=== PATIENT | female | born 1965 | race Caucasian/White ===

== ENCOUNTER 2023-11-01 06:25 | Inpatient (IN) | payer MEDICARE, OTHER, SELFPAY ==
--- NOTE | 2023-11-01 03:40 | DOWNTIME ---
There was a [employer] Downtime on 09/26/2023 from 0100 to 09/27/2023 at 0338. Downtime documentation of patient's care, including medication administrations, has been reconciled in the electronic record per guidelines. Refer to the
patient's paper chart under the miscellaneous tab to see printed paper medication records and downtime forms.
--- NOTE | 2023-11-01 03:44 | ED.GENMED ---
History of Present Illness
General
Chief Complaint: Abdominal Pain
Source: patient and spouse
Exam Limitations: none
Time Seen by Provider: 11/01/23 03:37
Nursing documentation reviewed up to this point in time: agreed with
History of Present Illness
History of Present Illness:
58-year-old female with past medical history as documented presents to the emergency department for evaluation of abdominal pain. Patient reports onset of symptoms about a week ago initially they were intermittent but over the past 48 hours have
been constant and more intense. She reports pain primarily in the right upper abdomen radiates towards the right flank. No clear triggering or relieving factors noted. She states she did have some nausea and nonbloody vomiting as well as a
low-grade fever last week shortly after onset but those symptoms have resolved. She denies any diarrhea, does note some constipation over the past few days. She denies any dysuria, hematuria, change in urinary frequency. She says she has never
had similar symptoms in the past. She denies any previous abdominal surgeries.
Past History
Past History
ED Past Medical History: Other (Asthma, anemia, depression, bleeding disorder) and Other (psoriatic arthritis)
Social History
Tobacco: Smoker
Review of Systems
Review of Systems
All Other Systems: ROS reviewed and negative except as documented in HPI and ROS
Constitutional: Reports fever (Initial fever now resolved); Denies chills
Respiratory: Denies cough or trouble breathing
Cardiac: Denies chest pain or palpitations
ABD/GI: Reports abdominal pain, nausea (Initially had nausea and vomiting now resolved) and constipated; Denies diarrhea
: Reports flank pain; Denies dysuria or frequency
Musculoskeletal: Denies neck pain or back pain
Neurological: Denies dizzy or headache
Phy Exam
Physical Exam
Physical Exam:
General: Awake, alert, oriented x3; appears mildly uncomfortable
Head: Normocephalic, atraumatic
Eyes: Conjunctiva normal, sclera anicteric
Throat: Airway intact, handling secretions, moist mucous membranes
Neck: Trachea midline, supple without meningismus
Lungs: Breathing comfortably no distress
Heart: Regular rate
Abd: Soft, mildly distended, tender to palpation right upper quadrant and epigastrium with no rebound or guarding
Back: No CVA tenderness
Neuro: No gross deficits
Skin: no rash
Extremities: No edema in extremities, equal pulses in all extremities
Scores
Heart Failure Risk
Heart Failure Risk Score: Not Applicable
Heart Score for Chest Pain Patients
STEMI patient?: Not applicable
Withdrawal Assessment of Alcohol
Withdrawal Assessment Completed?: Not applicable
Course
Orders/Labs/Results
Orders:
Orders
11/01/23
CT Abd/Pel (IV only)-DH only Urgent
Reason For Exam: ruq pain
11/01/23 02:17
Complete Blood Count/With Diff Routine
Comprehensive Metabolic Panel Routine
Lipase Routine
11/01/23 04:30
UA [Urinalysis] Urgent
Date Specimen was Collected: 11/01/23
Time Specimen was Collected: 04:06
11/01/23 04:37
CefTRIAXone [Rocephin] 1,000 mg IV NOW STA
MetroNIDAZOLE IVPB 500 mg IVPB NOW MetroNIDAZOLE 500 MG/100 ML [Flagyl 500 mg] 100 ml IV NOW
Abnormal Lab Results
11/01/23
02:17
Lipase 348 H U/L
(23-300)
11/01/23 02:17
11/01/23 02:17
MDM/Problems Addressed
Differential Diagnosis Includes:
Cholelithiasis, cholecystitis, appendicitis, pancreatitis, gastritis/PUD, nephrolithiasis
MDM/Problems Addressed:
58-year-old female presents to the emergency room for evaluation of abdominal pain�initially intermittent but constant over the past 48 hours and worsening. Had low-grade fever and some vomiting last week but no associated symptoms this week aside
from mild constipation. Vitals and exam as documented. Plan to place an IV check labs including a CBC and a CMP, lipase. Will check urinalysis. Will send for a CT of the abdomen pelvis. Will provide IV fluids and pain control. Monitor closely
reassess after the above.
Patient still having significant pain after initial dose of morphine�will provide dose of Dilaudid. Initial labs reviewed CBC unremarkable, CMP shows no clinically significant abnormalities; her lipase was marginally elevated at 348. Awaiting
results of CT.
CT reviewed by me appears to show cholelithiasis, awaiting final radiology report. Patient still having significant pain, added Toradol to above regimen.
CT report reviewed: Positive for cholelithiasis with likely impacted stone in the gallbladder neck. No pericholecystic fluid but gallbladder is distended, could be an early acute cholecystitis and given that she is having persistent pain and
tenderness will cover with antibiotics. I think regardless she should have surgical consultation given persistent symptoms, will admit to hospital service for continued management. Case discussed with hospitalist for admission.
Chronic conditions affecting care:
Obesity
*Radiology
Radiology exam reviewed: radiology read reviewed
*Pulse Oximetry
Patient hypoxic: no
*Critical Care Note
Total Time (30-74mins, 75-104mins- exclusive of procedures): Not Applicable
Data Reviewed
Review of Other/Old Records Reveals: Labs and Records
Source: patient and spouse
Patient Management
Discussion with other providers: Hospitalist (Discussed with hospitalist)
Escalation/DeEscalation of care consider admission/obs:
Admission indicated
ED Attending Note
-
Portions of this chart may have been created with voice recognition software.� Occasional wrong word or��sound alike� substitutions may have occurred due to the inherent limitations of voice recognition software.
Discharge Plan
Departure
Patient Disposition: Admit
Date of Disposition: 11/01/23
Time of Disposition: 04:40
Admit to doctor: Mir
Presentation/result/management discussed w/ accepting MD/DO: Hospitalist
Discharge Problem:
Cholelithiasis
Prescriptions:
No Action
ibuprofen 200 MG tablet
400 mg PO DAILYPRN PRN (Reason: PAIN)
albuterol sulfate 1 PUFF HFA aerosol inhaler
2 puff inhalation R Q4HPRN PRN (Reason: SHORTNESS OF BREATH)
ondansetron [Zofran ODT] 8 MG tablet,disintegrating
8 mg PO TIDPRN PRN (Reason: vomiting) Qty: 15 0RF
oxycodone [OxyIR] 5 MG capsule
5 - 10 mg PO Q6HPRN PRN (Reason: pain) Qty: 20 0RF
pantoprazole [Protonix] 40 MG tablet,delayed release (DR/EC)
40 mg PO BID Qty: 30 0RF
Referrals:
Jonh Garcia MD [Family Provider] -
Interventions
Interventions:
BW-Qegroj-Enuziokhtn Assessment Last Done: 11/01/23 03:57
Discharge Date and Time
Print Language: BANGLADESHI
[2023-11-01 03:47] LABS: ALT (SGPT) 19 U/L (0-35); AST (SGOT) 23 U/L (14-36); Albumin 3.9 g/dl (3.5-5.0); Alkaline Phosphatase 109 U/L (38-126); Blood Urea Nitrogen 15 mg/dl (7-17); Calcium 9.7 mg/dl (8.4-10.2); Carbon Dioxide 26 mmol/L (22-30); Chloride 103 mmol/L (98-107); Glucose 94 mg/dl (70-99); Lipase 348 U/L (23-300); Potassium 4.2 mmol/L (3.5-5.1); Sodium 138 mmol/L (135-145); Total Bilirubin 0.4 mg/dl (0.2-1.3); eGFR > 60.00
[2023-11-01 03:56] LABS: % Basophils 0.6 % (0-2); % Eosinophils 2.5 % (0-6); % Immature Granulocytes 0.1 % (0-0.5); % Monocytes 6.1 % (1.7-9.3); % Neutrophils 64.7 % (42.2-75.2); Absolute Basophils 0.1 10^3/uL (0-0.2); Absolute Eosinophils 0.2 10^3/uL (0-0.7); Absolute Lymphocytes 2.2 10^3/uL (1.2-3.4); Absolute Monocytes 0.5 10^3/uL (0.1-0.6); Absolute Neutrophils 5.4 10^3/uL (1.4-6.5); Hematocrit 40.5 % (37.0-47.0); Hemoglobin 13.6 g/dL (12.0-16.0); Mean Corp Hgb Conc. 33.6 g/dL (33.0-37.0); Mean Corpuscular Hgb 28.3 pg (27.0-31.0); Mean Corpuscular Volume 84.4 fL (81.0-99.0); Mean Platelet Volume 8.9 fL (7.4-10.4); Nucleated Red Blood Cells % 0 %; Platelet Count 400 10^3/uL (130-400); Red Cell Dist. Width 13.1 % (11.5-14.5); White Blood Cell Count 8.4 10^3/uL (4.8-10.8)
[2023-11-01 04:43] LABS: Urine Albumin Negative (Neg - Trace); Urine Bilirubin Negative (Negative); Urine Character Clear (Clear); Urine Color Straw; Urine Glucose Negative (Negative); Urine Ketone Negative (Negative); Urine Leukocyte Trace (Negative); Urine Nitrite Negative (Negative); Urine Occult Blood Negative (Negative); Urine Specific Gravity 1.005 (<1.030); Urine Urobilinogen Negative (Neg - 1+)
[2023-11-01 04:59] LABS: Urine Bacteria Moderate (Negative); Urine Squamous Cell >30 /LPF (Few)
[2023-11-01] MEDS: ROCEPHIN 1000 MG IV (05:00)
[2023-11-01] MEDS: FLAGYL 500 MG 100 IV (05:00)
--- NOTE | 2023-11-01 05:53 | HPS.HSE ---
Family Physician
-
Family Physician: Jonh Garcia
Chief Complaint
-
Abd Pain, N/V
History of Present Illness
Patient is a 58y F with PMH significant for psoriatic arthritis who presents to ED complaining of abdominal pain and N/V. Patient reports RUQ abdominal pain and R flank pain that started about one week ago. Her symptoms improved briefly in the
interim - before recurring again on Monday evening. She has had multiple episodes of non-bloody, bilious emesis. Pos chills with no documented fever. No diarrhea. No urinary complaints.
Patient denies any prior history of similar symptoms. She states that symptoms do not seem to be triggered by or worsened by eating / drinking.
She presented to the ED this evening for further evaluation and CT scan shows gallbladder stones including probable GB neck stone and possible cholecystitis.
Medical History
Past Medical History
Past Medical History: Reports Other
Additional Past Medical History:
Psoriatic Arthritis
Past Surgical History: Reports Other
Additional Past Surgical History:
Left Rotator Cuff Surgery (August 2023)
Cervical Laminectomy / Foraminotomy
Lumbar Laminectomy / Fusion
Carpal Tunnel
Social History
Tobacco: Smoker (Current every day smoker. /3 ppd for total of 10-15 pack years.)
Alcohol: Occasional
Drug: None
Personal:
Living: With Family
Family History
Family History: Not pertinent
Allergies / Home Medications
Allergies reflects when Allergies were last updated in [employer] [facility] [employer].
Home Medications with original date entered in [employer] [facility] [employer]
Allergy/Medication List:
Allergies
Allergy/AdvReac Type Severity Reaction Status Date / Time
adhesive Allergy Rash Verified 10/28/21 19:11
Home Medications
celecoxib 200 mg capsule (Celebrex) 200 mg PO BID 11/01/23
folic acid 1 mg tablet 1 mg PO DAILY 11/01/23
ixekizumab 80 mg/mL subcutaneous auto-injector (Taltz Autoinjector) 80 mg SC Q4W 11/01/23
methotrexate sodium 2.5 mg tablet 15 mg PO WEEKLY 11/01/23
Review of Systems
-
History Source: Patient
A 12 point ROS was completed and negative except as noted: Yes
Constitutional: Reports Fatigue and Chills; Denies Fever
EENT: Denies Sore Throat
Respiratory: Denies Cough or Trouble Breathing
Cardiac: Denies Chest Pain, Diaphoresis or Palpitations
Abdomen/GI: Reports Abdominal Pain, Nausea and Vomiting; Denies Diarrhea, Constipated, Bloody Stools or Black Stools
: Reports Flank Pain; Denies Dysuria or Frequency
Neurological: Denies Dizzy or Headache
Psych: Denies Depression or Anxiety
Physical Exam
Physical Exam
General: Other (58y F in mild distress due to abdominal pain.)
HEENT: Moist mucous membranes and PERRLA
Respiratory: Other (Decreased at bases. Scattered squeaks / wheezes.)
Cardiac: S1/S2 and Regular Rhythm; No Murmur
GI: Other (Obese, pos RUQ tendernesss / RT CVAT. Voluntary guarding. No rebound. Pos BS.)
Musculoskeletal: No Clubbing, No Cyanosis and No Edema
Neuro: AO x 3
Laboratory Results
-
11/01/23 02:17
11/01/23 02:17
Laboratory Results
Total Bilirubin 0.4 mg/dl (0.2-1.3) 11/01/23 02:17
AST 23 U/L (14-36) 11/01/23 02:17
ALT 19 U/L (0-35) 11/01/23 02:17
Alkaline Phosphatase 109 U/L (38-126) 11/01/23 02:17
Lipase 348 U/L (23-300) H 11/01/23 02:17
Impression/Plan
-
A/P: Patient is a 58y F with PMH significant for psoriatic arthritis who presents to ED complaining of abdominal pain with N/V.
Symptomatic Cholelithiasis +/- Acute Cholecystitis
- Admit for further evaluation and treatment.
- Check abdominal US for further evaluation.
- Empiric IV abx for now.
- GI and Surgery evaluations.
- Supportive care including pain control, antiemetics, etc.
- Follow for clinical improvement.
Psoriatic Arthritis
- Stable. Missed Monday dose of MTX (last 10 days ago now).
- Continue to hold this and Taltz for now.
- Monitor for any new / worsening joint pains.
Tobacco Use Disorder
- Affects all aspects of care.
- Encourage smoking cessation efforts.
- DuoNebs PRN for cough / wheeze / etc.
DVT Prophylaxis: SCDs
Code Status: Full
[2023-11-01] MEDS: TORADOL 15 MG IV (06:06)
[2023-11-01 06:08] VITALS: BP 131/97
[2023-11-01 07:00] VITALS: BMI 29.8
--- NOTE | 2023-11-01 07:22 | PTCARENOTE ---
0700: Patient arrived to 2S. Full head to toe assessment completed. Patient on RA with SpO2 greater than 92%. Call phelan within reach and bed in lowest position. at bedside.
[2023-11-01 07:34] VITALS: BP 119/59
[2023-11-01] MEDS: NSS 1000 IV (07:52)
[2023-11-01] MEDS: ZOSYN 50 IV ×2 (07:55→14:00)
[2023-11-01] MEDS: NSS (PRESERVATIVE FREE) 10 ML IV (07:57)
[2023-11-01] MEDS: PROTONIX IV 40 MG IV (07:57)
[2023-11-01] MEDS: FOLVITE 1 MG PO (08:02)
--- NOTE | 2023-11-01 08:28 | CON.GI ---
Addendum entered and electronically signed by Skip Ayers MD 11/01/23 11:56:
I saw and examined the patient.
The [employer] or PA's note was reviewed and I agree with the note.
Comment: 58-year-old female past medical history as below presenting with abdominal pain, nausea, vomiting, diarrhea. No travel or sick contacts. Having ongoing right upper quadrant pain. CT scan showed gallstone in the neck of the gallbladder.
LFTs are normal. Ultrasound is ordered but not done. Suspect biliary colic versus acute cholecystitis versus viral gastroenteritis however has impacted gallstone making former two more likely. With normal LFTs, low suspicion for
choledocholithiasis. Surgery is planning to take her to the OR for cholecystectomy. GI will sign off. Please call with questions.
Original Note:
Consultation
-
Date/Time Consultation Requested: 11/01/23
Date/Time Consultation Performed: 11/01/23 @ 08:30
Requesting Provider: Dr. Hester
Performing Provider: MONSERRAT Mujica; Dr. Marcela Ayers
Reason for Consultation: Cholelithiasis +/- Cholecystitis
Medical History
Chief Complaint / HPI
Chief Complaint: abdominal pain, nausea, vomiting
History of Present Illness:
The patient is a 58-year-old female with a past medical history significant for psoriatic arthritis on Taltz and methotrexate, current smoker, who presented to the emergency room with complaints of abdominal pain, nausea, and vomiting. We are being
asked to evaluate for concern for cholecystitis with cholelithiasis. The patient reports that last week she thought she had some kind of a virus as she had fevers and chills. She also had diarrhea at that time which was nonbloody. She also admits
to nausea with vomiting of bilious emesis. She did have some mild right upper quadrant pain at that time but this eventually subsided. She had recurrent symptoms on Monday with right upper quadrant pain, and notes last night she was freezing and
felt that she had a fever although she did not take her temperature. She had recurrent nausea and vomiting again with bilious emesis. She denies any hematemesis. She notes that she was having pain on the right side that radiated to the middle and
to her right flank area. She did have this pain with the onset of her symptoms last week but it was not as severe. She has never had pain like this in the past. She notes that she did fall last week after having urgent need to move her bowels and
tripped. She denies any syncope, dizziness, or lightheadedness. She notes that she was recently treated for bronchitis about 3 to 4 weeks ago and was prescribed a Z-Adam along with prednisone. Prior to this onset she felt well with no complaints
or problems. She notes occasional heartburn and does take omeprazole as needed, which varies depending on her weight. She otherwise denies any other GI complaints. She denies any unintentional weight loss. She is a current smoker of 6 to 10
cigarettes daily and she has been doing so for 35 to 40 years. She denies alcohol use or drug use. She denies any family history of colorectal cancer or other GI cancers or disorders, but her mother did from blood cancer. She is being treated
for psoriatic arthritis and is on Toltz and methotrexate. She also does use Celebrex for her chronic pain. She reports having a colonoscopy in July out of [place] with Dr. Glez and had 2 polyps removed, recommended to have a repeat
colonoscopy in 3 years. She reports a remote history of endoscopy secondary to black stool but no history of peptic ulcer disease. Routine labs on admission showed a normal CBC and CMP, with a mildly elevated lipase of 348. UA showing mild amount
of WBCs and moderate bacteria. A CT of the abdomen and pelvis was done with IV contrast only showing mild wall thickening of the gallbladder with gallstones, 1 which appears impacted in the neck of the gallbladder. Otherwise no acute process in
the abdomen. An ultrasound of the abdomen was ordered and is pending. She was made n.p.o., being admitted for further evaluation by GI and general surgery. She was placed on IV Zosyn.
Past Medical History
Past Medical History: GERD and Other (Psoriatic arthritis on Taltz and methotrexate)
Past Surgical History: Orthopedic (Lumbar laminectomy, cervical laminectomy, spinal fusion, recent shoulder surgery August 25, 2023) and Other (Carpal tunnel surgery)
Social History
Tobacco: Smoker (Daily smoker 6 to 10 cigarettes for the 30 to 40 years)
Alcohol: Other (Very rare alcohol use)
Drug: None
Family History
Family History: Cancer (mother- ? blood cancer) and Other (no CRC )
Allergies / Home Medications
Allergy/AdvReac Type Severity Reaction Status Date / Time
adhesive Allergy Rash Verified 11/01/23 06:24
�Medication �Instructions �Recorded
celecoxib 200 mg capsule (Celebrex) 200 mg PO BID 11/01/23
folic acid 1 mg tablet 1 mg PO DAILY 11/01/23
ixekizumab 80 mg/mL subcutaneous 80 mg SC Q4W 11/01/23
auto-injector (Taltz Autoinjector)
methotrexate sodium 2.5 mg tablet 15 mg PO WEEKLY 11/01/23
Review of Systems
-
History Source: Patient
Constitutional: Reports Fever and Chills
EENT: Reports No Symptoms
Respiratory: Reports Cough (chronic)
Cardiac: Reports No Symptoms
Abdomen/GI: Reports Abdominal Pain, Nausea, Vomiting and Diarrhea
: Reports No Symptoms
Musculoskeletal: Reports Other (chronic joint pains)
Skin: Reports No Symptoms
Neurological: Reports No Symptoms
Endocrine: Reports No Symptoms
Hematologic/Lymphatic: Reports No Symptoms
Vital Signs
Temp Pulse Resp BP Pulse Ox
98.2 F 68 18 119/59 98
11/01/23 07:34 11/01/23 07:34 11/01/23 07:34 11/01/23 07:34 11/01/23 07:34
Physical Exam
Exam
General: Well Developed, Well Nourished and No Apparent Distress
HEENT: Normocephalic, Anicteric and Atraumatic
Respiratory: Clear (diminished throughout) and Non Labored Respirations
Cardiac: S1/S2 and Regular Rhythm
Breast: Deferred by me
GI: Soft, Non Distended, Normal Bowel Sounds and Tender (+TTP RUQ)
Musculoskeletal: No Edema
Skin: Warm and Dry
Neuro: Awake, Alert and Oriented
Psych: Calm
Results
WBC 8.4 10^3/uL (4.8-10.8) 11/01/23 02:17
Hgb 13.6 g/dL (12.0-16.0) 11/01/23 02:17
Hct 40.5 % (37.0-47.0) 11/01/23 02:17
MCV 84.4 fL (81.0-99.0) 11/01/23 02:17
Plt Count 400 10^3/uL (130-400) 11/01/23 02:17
Absolute Neuts (auto) 5.4 10^3/uL (1.4-6.5) 11/01/23 02:17
Sodium 138 mmol/L (135-145) 11/01/23 02:17
Potassium 4.2 mmol/L (3.5-5.1) 11/01/23 02:17
Chloride 103 mmol/L (98-107) 11/01/23 02:17
Carbon Dioxide 26 mmol/L (22-30) 11/01/23 02:17
BUN 15 mg/dl (7-17) 11/01/23 02:17
Creatinine 0.8 mg/dL (0.6-1.0) 11/01/23 02:17
Calcium 9.7 mg/dl (8.4-10.2) 11/01/23 02:17
Total Bilirubin 0.4 mg/dl (0.2-1.3) 11/01/23 02:17
AST 23 U/L (14-36) 11/01/23 02:17
ALT 19 U/L (0-35) 11/01/23 02:17
Alkaline Phosphatase 109 U/L (38-126) 11/01/23 02:17
Lipase 348 U/L (23-300) H 11/01/23 02:17
Diagnostic Image Results:
11/01/23 CT A/P w/IV contrast:
1. Mild wall thickening of the gallbladder, with gallstones, one of which appears impacted in the neck of the gallbladder. Ultrasound is recommended.
2. No acute process in the abdomen or pelvis otherwise. No free air. No free fluid or fluid collection.
Prior GI Procedures:
EGD: remote hx EGD, pt does not recall findings
Colonoscopy: July [address] Glez at [place], per pt 2 polyps removed unclear type, she was told to repeat in 3 years
Assessment / Plan
-
The patient is a 58-year-old female with a past medical history significant for psoriatic arthritis on Taltz and methotrexate, current smoker, who presented to the emergency room with complaints of abdominal pain, nausea, and vomiting for the past
week, found to have mild wall thickening of the gallbladder with gallstones with 1 stone appearing impacted in the neck of the gallbladder, otherwise no acute process in the abdomen or pelvis. Her labs are normal, with no leukocytosis or abnormal
LFTs. Her lipase is only mildly elevated in the 300s. She continues with right upper quadrant pain. She has had no documented fevers here. She was placed on IV Zosyn and IV fluids, made n.p.o. for further evaluation by general surgery and GI.
Problem list:
-Right upper quadrant pain
-Fever/chills
-CT imaging showing gallbladder wall thickening and cholelithiasis
-Minimally elevated lipase
-Psoriatic arthritis on Taltz and methotrexate
-Chronic NSAID use
-Chronic cigarette smoker
-GERD
Recommendations:
-Etiology of right upper quadrant pain likely secondary to gallbladder etiology given presence of large stone in the neck of the gallbladder and gallbladder wall thickening. LFTs are normal suggesting less likely biliary obstruction.
-Await ultrasound the abdomen, if any biliary ductal dilation/abnormalities, would send for MRCP but this is unlikely.
-She is on antibiotics with IV Zosyn
-Pending general surgery evaluation
-Continue n.p.o.
-Continue PPI
-IV fluids as per hospitalist
-Further plan pending above. Will review with Dr. Ayers.
-
-
Thank you for consultation and allowing me to participate in the patient's care. Please call the salesperson women's dresses GI physician during the after hours with any questions or concerns.
--- NOTE | 2023-11-01 10:48 | W.PN.HOSP.TC ---
Addendum entered and electronically signed by Raz Jurado MD 11/01/23 15:10:
Patient seen and examined postoperatively
Discussed with resident
Discussed with surgery
Acute calculus cholecystitis
Status post robotic assisted laparoscopic cholecystectomy.
Okay to stop antibiotics
Diet has been advanced.
Activity ad preet.
Discharge home later today
Original Note:
Today's Communication/Plan
-
* OR today.
* Anticipated discharge soon.
Assessment / Plan
Assessment / Plan
Assessment
Patient is a 58y F with PMH significant for psoriatic arthritis who presents to ED complaining of abdominal pain and N/V. Patient reports RUQ abdominal pain and R flank pain that started about one week ago. Her symptoms improved briefly in the
interim - before recurring again on Monday evening. She has had multiple episodes of non-bloody, bilious emesis. Pos chills with no documented fever. No diarrhea. No urinary complaints.
Patient denies any prior history of similar symptoms. She states that symptoms do not seem to be triggered by or worsened by eating / drinking.
She presented to the ED this evening for further evaluation and CT scan shows gallbladder stones including probable GB neck stone and possible cholecystitis.
Impression
* Acute cholecystitis
* Cholelithiasis
* Psoriatic arthritis
* Tobacco use disorder
Plan
Acute cholecystitis
- Admit for further evaluation and treatment.
- CT AP shows 'mild wall thickening of the gallbladder, with gallstones, one of which appears impacted in the neck of the gallbladder'.
- Check abdominal US for further evaluation.
- Empiric IV abx for now.
- GI and Surgery evaluations.
- Supportive care including pain control, antiemetics, PPI, IV hydration etc.
- NPO in anticipation of OR.
- OR today for cholecystectomy.
Psoriatuc arthritis
- Stable. Missed Monday dose of MTX (last 10 days ago now).
- Continue to hold this and Taltz for now.
- Monitor for any new / worsening joint pains.
Tobacco use disorder
- Encourage smoking cessation efforts.
- DuoNebs PRN for cough / wheeze / etc.
DVT prophylaxis
- SCD.
Code status
- Full.
Anticipated Discharge: Within 24 hours
Subjective/Interval History
-
Date of Service: November 01, 2023
Objective Data
-
Labs:
Laboratory Results
11/01/23
02:17
WBC 8.4
Hgb 13.6
Hct 40.5
Plt Count 400
Sodium 138
Potassium 4.2
Chloride 103
Carbon Dioxide 26
BUN 15
Creatinine 0.8
Glucose 94
Calcium 9.7
Total Bilirubin 0.4
AST 23
ALT 19
Alkaline Phosphatase 109
Vital Signs:
Vital Signs
Temp Pulse Resp BP Pulse Ox
98.2 F 68 18 119/59 98
11/01/23 07:34 11/01/23 07:34 11/01/23 07:34 11/01/23 07:34 11/01/23 07:34
Review of Systems
-
History Source: Patient
Constitutional: Reports No Symptoms
EENT: Reports No Symptoms Reported
Respiratory: Reports Cough
Cardiac: Reports No Symptoms
Abdomen/GI: Reports Abdominal Pain
Genitourinary: Reports No Symptoms
Musculoskeletal: Reports No Symptoms
Skin: Reports No Symptoms
Neuro: Reports No Symptoms
Endocrine: Reports No Symptoms
Hematologic / Lymphatic: Reports No Symptoms
Allergy / Immunology: Reports No Symptoms
Physical Exam
-
General: No Apparent Distress and Comfortable
HEENT: Normocephalic, Atraumatic, Moist Mucous Membranes and Anicteric
Respiratory: Wheezes and Non Labored Respirations
Cardiac: Regular Rhythm and S1/S2
GI: Soft, Tender (RUQ), No Hepatosplenomegaly and Other (voluntary guarding; no rebound or rigidity)
Genito-urinary: No Costovertebral Tender
Musculoskeletal: No Clubbing, No Cyanosis and No Edema
Skin: Warm, Dry and IV Access / Catheter Site
Neuro: Awake, Alert, Oriented and Nonfocal/Grossly Intact
Psych: Calm
--- NOTE | 2023-11-01 11:03 | CON.GS ---
Consultation
-
Requesting Provider: Mir
Performing Provider: Dean
Reason for Consultation: ACC
Medical History
-
Chief Complaint: Abd pain
History of Present Illness:
58F with several days of abd pain a/w n/v. Pain localized to RUQ and wraps around to right flank. Intewrmittent symptoms for a few days then last night acutely worsened. Denies fever, endorses chills. Denies changes to stool/urine. Denies prior
similar episodes.
Past Medical History
Past Medical History: Other (psoriatic arthritis)
Past Surgical History: Orthopedic
Social History
Tobacco: Smoker
Alcohol: Occasional
Drug: None
Personal:
Living: With Family
Family History
Family History: Reviewed & Noncontributory
Allergies / Home Medications
Allergy/AdvReac Type Severity Reaction Status Date / Time
adhesive Allergy Rash Verified 11/01/23 06:24
�Medication �Instructions �Recorded �Confirmed �Type
celecoxib 200 mg capsule (Celebrex) 200 mg PO BID 11/01/23 11/01/23 History
folic acid 1 mg tablet 1 mg PO DAILY 11/01/23 11/01/23 History
ixekizumab 80 mg/mL subcutaneous 80 mg SC Q4W 11/01/23 11/01/23 History
auto-injector (Taltz Autoinjector)
methotrexate sodium 2.5 mg tablet 15 mg PO WEEKLY 11/01/23 11/01/23 History
Review of Systems
-
A 10 point review of systems was completed, and was negative except as per HPI.
Physical Exam
Vital Signs
Temp Pulse Resp BP Pulse Ox
98.2 F 68 18 119/59 98
11/01/23 07:34 11/01/23 07:34 11/01/23 07:34 11/01/23 07:34 11/01/23 07:34
10/31/23 11/01/23 11/02/23
06:59 06:59 06:59
Actual Weight 81.2 kg 78.698 kg
Body Mass Index (BMI) 29.8
Lab Results
11/01/23 02:17
11/01/23 02:17
WBC 8.4 10^3/uL (4.8-10.8) 11/01/23 02:17
Hgb 13.6 g/dL (12.0-16.0) 11/01/23 02:17
Hct 40.5 % (37.0-47.0) 11/01/23 02:17
Plt Count 400 10^3/uL (130-400) 11/01/23 02:17
Abs Immat Gran (auto) 0.0 10^3/uL (0-0.05) 11/01/23 02:17
Neutrophils % 64.7 % (42.2-75.2) 11/01/23 02:17
Physical Exam
General: Well Developed, Well Nourished and No Apparent Distress
HEENT: Normocephalic and Anicteric
GI: Soft, Non Distended and Tender (ttp to RUQ and epigastrium)
Skin: Warm and Dry
Neuro: AO x 3
Psych: Calm
Data Reviewed
-
CT Scan: Image Personally Visualized and interpreted, Report Reviewed by me and Discussed with Patient
Labs: Labs Reviewed by me and Discussed with Patient
Old Records: Reviewed
Assessment / Plan
-
58F with biliary colic vs ACC
Remains ttp to RUQ
Labs unremarkable
CT with stones, distended gb, mild GBWT, no PCF
Plan:
OCTOR for rCCY
ICG is ordered
IVC abx ordered
Risks, benefits, co,plications and alternatives were discussed in detail including but not limited to pain, bleeding, infection, conversion to open procedure, injury to intra-abdominal structures including but not limited to biliary structures and
bowel, infection, wound complications, need for further procedures and the pt verbalized understanding and agreed to proceed. We discussed her smoking and psoriatic arthritis meds will increase her risk of complications, specifically infection and
wound healing, she verbalized understanding.
--- NOTE | 2023-11-01 11:06 | CM ---
Reviewed the chart notes and spoke with the patient at the bedside. The patient anticipates going to the OR this afternoon. The patient resides with her spouse in a one story home with no steps to enter. The patient reports only DME in home is a
nebulizer. The patient had VN in past after delivery, but no SNF. The patient confirmed her pharmacy of choice is the [facility]. CM continues to be available to patient/family and is monitoring medical plan for needs at discharge.
Plan: Discharge to home when medically stable.
--- NOTE | 2023-11-01 11:10 | PTCARENOTE ---
1105: Patient off unit to OR for lap yohana.
--- NOTE | 2023-11-01 12:56 | OR.RPT ---
Operative Report
Operative Report
Primary Surgeon: Dean
Assisting: Rory PERERA
Pre-op Diagnosis: Acute calculous cholecystitis
Post-op Diagnosis: Same
Procedure Performed: Robot assisted laparoscopic cholecystectomy
Anesthesia Type: GETA
Specimen / Cultures: Gallbladder
Estimated Blood Loss: 15cc
Complications: None immediate
Operative Findings: Inflamed distended gallbladder with thickened wall, fibrotic posterior plane
Date of Surgery:� 11/01/23
Indications: This 58F developed acute onset right upper quadrant pain and imaging was consistent with acute calculous cholecystitis. Liver function studies were within normal limites. Cross sectional imaging did not reveal any biliary ductal
dilation. Laparoscopic cholecystectomy with robotic assist was elected.
Description of procedure: The patient was placed on the operating table in the supine position. General anesthesia was induced. A time-out was completed verifying correct patient, procedure, site, positioning, and special equipment prior to
beginning this procedure. An orogastric tube was placed. The abdomen was prepped and draped in the usual sterile fashion. A stab incision was made in left upper quadrant and the Veress needle was inserted. Proper position was confirmed by aspiration
and saline meniscus test. The abdomen was insufflated with carbon dioxide to a pressure of 12mmHg. The patient tolerated insufflation well.
A 8mm trocar was then inserted above the umbilicus. The laparoscope was inserted and the abdomen inspected. No injuries from initial trocar placement or Veress needle insertion were noted. Additional 8mm trocars were then inserted in the following
locations: two in the right lower quadrant and to the left of the umbilicus and just above. The abdomen was inspected and no abnormalities were found. The table was placed in the reverse Trendelenburg position with the right side up. The dome of the
gallbladder was grasped with an atraumatic grasper and retracted over the dome of the liver. The infundibulum was then grasped with an atraumatic grasper and retracted toward the right lower quadrant. This maneuver exposed Calot�s triangle. The
peritoneum overlying the gallbladder infundibulum was then incised and the cystic duct and cystic artery identified and circumferentially dissected so that a clear view of the liver was achieved through a window between the cystic duct an cystic
artery. ICG was used to verify the location of the common duct and the common duct was protected. At this time, the only two structures going into the gallbladder were the cystic artery and cystic duct.
The cystic duct was then doubly clipped and divided. The cystic artery was controlled with bipolar and divided. The gallbladder was then dissected from its peritoneal attachments by electrocautery. The gallbladder was removed using an endoscopic
retrieval bag placed through the umbilical port. The gallbladder was passed off the table as a specimen. The gallbladder fossa was closely inspected. Small amount of oozing in this area that was controlled with cautery until hemostasis was assured.
Following this there was no evidence of bleeding from the gallbladder fossa or cystic artery or leakage of the bile from the cystic duct stump. The umbilical trocar site was closed at the fascial level with 2-0 PDS. Secondary trocars were removed
under direct vision and noted to be hemostatic. The abdomen was allowed to collapse. The skin was closed with subcuticular sutures of 4-0 monocryl and topical skin adhesive. The orogastric tube was removed.
The patient tolerated the procedure well and was taken to the postanesthesia care unit in stable condition.
[2023-11-01 13:15] VITALS: BP 119/59
[2023-11-01 13:45] VITALS: BP 120/62
[2023-11-01 14:00] VITALS: BP 108/57
--- NOTE | 2023-11-01 14:28 | PTCARENOTE ---
1420: Patient arrived back to 2S. 5 lap sites on abdomen. R side lap site with band aid with a small amount of drainage. Other 4 lap sites are open to air and are clean dry and intact. IVF running per order. Patient wearing 2L NC with SpO2 greater
than 92%. Call phelan within reach and bed in lowest position. at bedside.
[2023-11-01 14:44] VITALS: BP 127/73
[2023-11-01] MEDS: IC GREEN 2.5 MG IV (14:49)
--- NOTE | 2023-11-01 14:56 | W.DCSUMMARY ---
Discharge Summary
Discharge Data
Date of Admission: 11/01/23
Date of Discharge: 11/01/23
-
Pending Results: No
Hospital Course
Primary discharge diagnosis
* Acute calculous cholecystitis
Secondary discharge diagnoses
* Cholelithiasis
* Psoriatic arthritis
* Tobacco use disorder
Hospital course
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 Imaging and blood work were indicative of a gall bladder etiology; gastroenterology and general
surgery were consulted. She was considered a candidate for laparoscopic cholecystectomy, and underwent that without significant or immediate complications later at noon. She recovered well, and her pain had improved post-procedure. Her vitals
remained stable throughout her stay. She will be discharged with post-operative care instructions and pain management. Follow-up with primary and general surgery within 2 weeks.
Discharge Plan
-
Patient Disposition: Home (Routine Discharge)
Discharge Diagnosis/Procedures: Acute calculous cholecystitis
Condition: Good
Diet: No restrictions
Activity: No strenuous activity
Driving Restrictions: No driving for 24 hours
Bathing Restrictions: OK to Shower
Wound Care: Allow wound to flake off on its own
Activity Restrictions/Additional Instructions:
Take ibuprofen 600mg 4x daily with food for the next few days up to 1 week. In between, if you have pain, take 1000mg tylenol (max 4c daily). Use ice packs and/or heating pads. When this is not enough, take oxycodone 1-2 tabs.
Instructions: Cholecystectomy (DC)
Referrals:
Jonh Garcia MD [Family Provider] -
Roman Moran MD [Active] - in two to four weeks
Prescriptions:
New
oxycodone 5 mg capsule
5 mg PO Q8H PRN (Reason: Pain) Qty: 14 0RF
Continued
celecoxib [Celebrex] 200 mg Capsule
200 mg PO BID
methotrexate sodium 2.5 mg Tablet
15 mg PO WEEKLY
Rx Instructions:
Fridays
folic acid 1 mg Tablet
1 mg PO DAILY
Taltz Autoinjector 80 mg/mL Auto-Injector
80 mg SC Q4W
Discharge Orders:
Discharge Patient (As Directed); Ordered 11/01/23
Ordered By: Raz Jurado
Discharge Date and Time
Print Language: LITHUANIAN
--- NOTE | 2023-11-01 15:10 | W.DS.TRANS ---
DC Summary - Finishing Area Supervisor
-
Discharge Instructions:
Discharge Diagnosis/Procedures Acute calculous cholecystitis
Diet No restrictions
Activity No strenuous activity
Driving Restrictions No driving for 24 hours
Bathing Restrictions OK to Shower
Wound Care Allow wound to flake off on its own
Instructions: Cholecystectomy (DC)
Stand-Alone Forms:
Changes to Home Medications: Yes
Discharge Medications:
DC Medications w/original date entered in [employer]
celecoxib 200 mg capsule (Celebrex) 200 mg PO BID pain 11/01/23
folic acid 1 mg tablet 1 mg PO DAILY Supplement 11/01/23
ixekizumab 80 mg/mL subcutaneous auto-injector ([employer] Autoinjector) 80 mg SC Q4W 11/01/23
methotrexate sodium 2.5 mg tablet 15 mg PO WEEKLY 11/01/23
oxycodone 5 mg capsule 5 mg PO Q8H PRN Pain #14 caps 11/01/23
Home Medication Changes
Oxycodone for pain control.
Pending Results: No
== END 2023-11-01 15:51 | disposition home or self-care (01) | DRG 419 ==
LOC: 2 SOUTH 06:25
PROVIDERS: Student in an Organized Health Care Education/Training Program; ADMITTING PHYSICIAN Hospitalist; ATTENDING PHYSICIAN Internal Medicine; CONSULT PHYSICIAN Internal Medicine Gastroenterology; CONSULT PHYSICIAN Surgery; EMERGENCY PHYSICIAN Emergency Medicine; FAMILY PHYSICIAN Family Medicine
PROC: 8E0W4CZ Robotic Assisted Procedure of Trunk Region, Percutaneous Endoscopic Approach (ICD-10-PCS; 2023-11-01)
PROC: 0FT44ZZ Resection of Gallbladder, Percutaneous Endoscopic Approach (ICD-10-PCS; 2023-11-01)
DX: K80.00 Calculus of gallbladder with acute cholecystitis without obstruction (principal); L40.50 Arthropathic psoriasis, unspecified; F17.210 Nicotine dependence, cigarettes, uncomplicated; K21.9 Gastro-esophageal reflux disease without esophagitis; Z91.048 Other nonmedicinal substance allergy status; Z79.1 Long term (current) use of non-steroidal anti-inflammatories (NSAID); Z79.631 Long term (current) use of antimetabolite agent
CPT/HCPCS: 88304; 74177; 80053; 81003; 81015; 83690; 85025; 88342; 96365; 96375; 99285; Q9967